=== PATIENT | female | born 1975 | race Caucasian/White ===

== ENCOUNTER → 2016-12-07 | Outpatient (CLI) | payer OTHER ==
--- NOTE | 2016-12-08 09:49 | MM ---
Reason for exam: screening (asymptomatic). Last mammogram was performed 1 year and 6 months ago. History: Family history of breast cancer in mother at age 66. Physical Findings: A clinical breast exam by your physician is recommended on an annual basis and results should be correlated with mammographic findings. MG 3D Screening Mammo W/Cad Bilateral CC and MLO view(s) were taken. Prior study comparison: June 17, 2015, mammogram. The breast tissue is heterogeneously dense. This may lower the sensitivity of mammography. There is no discrete abnormality. ASSESSMENT: Negative, BI-RAD 1 RECOMMENDATION: Routine screening mammogram of both breasts in 1 year.
== END | disposition home or self-care (01) ==
LOC: RADMAMWWP 13:30
PROVIDERS: ATTEND Obstetrics & Gynecology Obstetrics
DX: Z12.31 Encounter for screening mammogram for malignant neoplasm of breast (principal); Z80.3 Family history of malignant neoplasm of breast
CPT/HCPCS: 77063; G0202

== ENCOUNTER → 2017-07-19 | Outpatient (CLI) | payer MEDICAID ==
[2017-07-19 16:52] LABS: Basophils % (A) 1 %; Eosinophils # (A) 0.2 k/uL (0-0.7); Eosinophils % (A) 2 %; HCT 43.3 % (34.0-46.0); HGB 14.3 gm/dL (11.4-16.0); Lymphocytes # (A) 2.2 k/uL (1.0-4.8); Lymphocytes % (A) 29 %; MCH 30.6 pg (25.0-35.0); MCV 92.9 fL (80.0-100.0); Mean Platelet Volume 7.3; Monocytes # (A) 0.4 k/uL (0-1.0); Monocytes % (A) 6 %; Neutrophils # (A) 4.6 k/uL (1.3-7.7); Neutrophils % (A) 60 %; Platelet Count 308 k/uL (150-450); RBC 4.66 m/uL (3.80-5.40); RDW 12.4 % (11.5-15.5); WBC 7.5 k/uL (3.8-10.6)
[2017-07-19 18:00] LABS: Total Eosinophil Count 151 #EOS/uL (150-300)
[2017-07-20 01:41] LABS: Alternaria alternata IgE <0.10 kU/L; Birch IgE 1.21 kU/L; Cat Epith & Dander IgE 2.36 kU/L; Cockroach IgE <0.10 kU/L; Dermato. farinae IgE <0.10 kU/L; Elm IgE <0.10 kU/L; Maple (Box Elder) IgE <0.10 kU/L; Oak IgE <0.10 kU/L; Ragweed,Common IgE 3.51 kU/L; Red Top (Bentgrass) IgE 0.91 kU/L
== END | disposition home or self-care (01) ==
LOC: LABWHC1 16:04
PROVIDERS: ATTEND Internal Medicine
DX: Z88.9 Allergy status to unspecified drugs, medicaments and biological substances (principal)
CPT/HCPCS: 36415; 82785; 85008; 85025; 86003

== ENCOUNTER → 2017-07-26 | Outpatient (CLI) | payer MEDICAID ==
--- NOTE | 2017-07-26 09:02 | CT ---
EXAMINATION TYPE: CT chest wo con DATE OF EXAM: 07/26/2017 COMPARISON: NONE HISTORY: Cough, COPD CT DLP: 251.8 mGycm High-resolution noncontrast CT of the chest was performed with the patient in the prone and supine po sitions. Lung and mediastinal window settings are submitted. The lungs appear to be well-aerated. Mild upper lobe parenchymal scarring. I do not see evidence for fibrotic change. There is no evidence for bronchiectasis, groundglass infiltrate, nodule or mass. No pleural effusion is identified. I do not see evidence for hilar or mediastinal mass or adenopath y. IMPRESSION: No significant abnormality is seen. Correlate clinically.
== END | disposition home or self-care (01) ==
LOC: RADCTMAIN 08:32
PROVIDERS: ATTEND Internal Medicine
DX: R05 Cough (principal)
CPT/HCPCS: 71250

== ENCOUNTER → 2019-12-25 | Outpatient (CLI) | payer OTHER ==
[2019-12-25 13:31] VITALS: BP 101/67; PULSE 113; RESP 12; TEMP 98
--- NOTE | 2019-12-25 14:24 | P.HPOB ---
History of Present Illness H&P Date: 12/25/19 Chief Complaint: The patient is here for her routine gynecologic exam and ma mmogram. This is a 44-year-old with an LMP of 11/15/2019. The patient is here to establish with this office. She is without gynecologic complaints. It has been about 3 years since her last pelvic examination. Status post tubal ligation and endometrial ablation. Menses are regular every month. Review of Systems The patient's weight has been stable over the last year. She denies respiratory, cardiac, or G.I. problems. 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 History of Any Multi-Drug Resistant Organisms: None Reported Past Surgical History: Tubal Ligation, Uterine Ablation Additional Past Surgical History / Comment(s): Endometrial ablation 2014. Past Psychological History: No Psychological Hx Reported Smoking Status: Never smoker Past Alcohol Use History: Occasional (3 or 4 per week) Past Drug Use History: None Reported Additional History: She has been since 2003. This is her second marriage. 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 - Past Family History Mother Family Medical History: Cancer Additional Family Medical History / Comment(s): Breast cancer age 65. Father Family Medical History: Hypertension Sister(s) Family Medical History: Cancer Additional Family Medical History / Comment(s): Skin cancer. Medications and Allergies Home Medications Medication Instructions Recorded Confirmed Type Fluticasone/Umeclidin/Vilanter 1 inhalation INHALATION DAILY 12/25/19 12/25/19 History [Barrera Purvis 100-62.5-25] Montelukast [Singulair] 10 mg PO HS 12/25/19 12/25/19 History Allergies Allergy/AdvReac Type Severity Reaction Status Date / Time No Known Allergies Allergy Unverified 12/25/19 13:42 Exam Vital Signs Temp Pulse Resp BP Pulse Ox 12/25/19 13:25 98.0 F 113 H 12 101/67 94 L Intake and Output 12/24/19 12/25/19 12/25/19 22:59 06:59 14:59 Other: Weight 55.338 kg Height 5 feet 6 inches, weight 122 pounds, BMI 19.7. This is a well-developed well-nourished white female who is alert and oriented times 3 in no acute distress. HEENT: Within normal limits. NECK: Supple without mass or thyromegaly. CHEST AND LUNGS: Clear to auscultation. HEART: Regular rate and rhythm. BREASTS: Are without mass or discharge. AXILLARY EXAM: Negative for adenopathy. BACK: Negative for CVA tenderness. ABDOMEN: Soft, nontender, without palpable masses. PELVIC EXAM: Normal external genitalia. Cervix and vagina appear normal. There is no unusual discharge. There is no evidence of prolapse. The uterus is midposition, nongravid size and nontender. There are no palpable adnexal masses or tenderness. RECTAL EXAM: negative for mass or tenderness and is negative for occult blood. EXTREMITIES: Nontender. IMPRESSION: 1. 44-year-old female who is status post tubal ligation with normal gynecologic exam. PLAN: 1. Pap smear was performed. 2. Self breast awareness was discussed with the patient. 3. Screening mammogram is due. The patient states she has an appointment in approximately 2 months. The order slip was given to the patient for this. 4. Osteoporosis prevention was discussed. I have stressed the importance of ad equate calcium, vitamin D and regular exercise. Recommended amounts of calcium and vitamin D were also discussed. 5. She was advised to return in one year for her annual well woman exam.
--- NOTE | 2020-01-02 15:45 | P.PN ---
Progress Note - Text Progress Note Date: 01/02/20 OUTPATIENT FOLLOW-UP NOTE TEST(S)/RESULTS: Pap smear 12/25/2019 was negative. METHOD OF NOTIFICATION: She was notified by phone. PATIENT COMMENTS: She is happy to hear this result. DIAGNOSIS: Negative Pap smear DISCUSSION: Mammogram is scheduled for 03/06/2020. PLAN: She was advised to return in one year for her annual well woman exam.
== END | disposition home or self-care (01) ==
LOC: WWCWWP 13:13
PROVIDERS: ATTEND Obstetrics & Gynecology
DX: Z53.9 Procedure and treatment not carried out, unspecified reason (principal)

== ENCOUNTER → 2021-04-21 | Outpatient (CLI) | payer OTHER ==
[2021-04-21 11:17] VITALS: BP 111/77; PULSE 96; RESP 18; TEMP 98.2
--- NOTE | 2021-04-21 11:51 | P.HPOB ---
History of Present Illness H&P Date: 04/21/21 Chief Complaint: The patient is here for her routine gynecologic exam. This is a 45-year-old with an LMP of 03/27/2021. She is status post tubal ligation and endometrial ablation. Menstrual periods have been regular every month and light. Review of Systems She has gained about 6 pounds over the past year. Respiratory: Occasional emphysema symptoms and she is treated for this. She denies cardiac or GI problems. 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 History of Any Multi-Drug Resistant Organisms: None Reported Past Surgical History: Tubal Ligation, Uterine Ablation Additional Past Surgical History / Comment(s): Endometrial ablation 2014. Past Psychological History: No Psychological Hx Reported Smoking Status: Never smoker Past Alcohol Use History: Occasional (4 per week) Past Drug Use History: None Reported Additional History: She has been since 2003. This is her second marriage. 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 - Past Family History Mother Family Medical History: Cancer Additional Family Medical History / Comment(s): Breast cancer age 65. Father Family Medical History: Hypertension Sister(s) Family Medical History: Cancer Additional Family Medical History / Comment(s): Skin cancer. Medications and Allergies Home Medications Medication Instructions Recorded Confirmed Type Fluticasone/Umeclidin/Vilanter 1 inhalation INHALATION DAILY 12/25/19 04/21/21 History [Trelerolan Ellipta 100-62.5-25] Montelukast [Singulair] 10 mg PO HS 12/25/19 04/21/21 History Multivitamin [Multivitamins Adult 1 each PO DAILY 04/21/21 04/21/21 History Gummies] Allergies Allergy/AdvReac Type Severity Reaction Status Date / Time No Known Allergies Allergy Unverified 04/21/21 11:10 Exam Vital Signs Temp Pulse Resp BP Pulse Ox 04/21/21 11:12 98.2 F 96 18 111/77 94 L Intake and Output 04/20/21 04/21/21 04/21/21 22:59 06:59 14:59 Other: Weight 58.06 kg Height 5 feet 5 inches, weight 128 pounds, BMI 21.3. This is a well-developed well-nourished white female who is alert and oriented times 3 in no acute distress. HEENT: Within normal limits. NECK: Supple without mass or thyromegaly. CHEST AND LUNGS: Clear to auscultation. HEART: Regular rate and rhythm. BREASTS: Are without mass or discharge. AXILLARY EXAM: Negative for adenopathy. BACK: Negative for CVA tenderness. ABDOMEN: Soft, nontender, without palpable masses. PELVIC EXAM: Normal external genitalia. Cervix and vagina appear normal. There is no unusual discharge. There is no evidence of prolapse. The uterus is midposition, nongravid size and nontender. There are no palpable adnexal masses or tenderness. RECTAL EXAM: negative for mass or tenderness and is negative for occult blood. EXTREMITIES: Nontender. IMPRESSION: 1. 45-year-old female who is status post tubal ligation, with normal gynecologic exam. PLAN: 1. Pap smear was deferred since she had a normal one on 12/25/2019. 2. Self breast awareness was discussed with the patient. We have also discussed symptoms associated with inflammatory breast cancer. 3. Screening mammogram is due and the order slip was given to the patient for this. She did not have one done last year. It has been about 2 years since her last one and she states she will do it at [facility] as she has done in the past. She states she may plan on having them done here at the time of her annual exams in the future. 4. Osteoporosis prevention was discussed. I have stressed the importance of adequate calcium, vitamin D and regular exercise. Recommended amounts of calcium and vitamin D were also discussed. 5. She has not received a Covid vaccination. She states she did have Covid in the past. She understands this [facility] recommends vaccination. She will consider this. 6. She was advised to return in one year for her annual well woman exam.
== END ==
LOC: WWCWWP 11:01
PROVIDERS: ATTEND Obstetrics & Gynecology
DX: Z01.419 Encounter for gynecological examination (general) (routine) without abnormal findings (principal); J43.9 Emphysema, unspecified; Z98.51 Tubal ligation status

== ENCOUNTER → 2022-06-08 | Outpatient (CLI) | payer OTHER ==
[2022-06-08 10:39] VITALS: BP 112/76; PULSE 97; RESP 17; TEMP 97.8
--- NOTE | 2022-06-08 11:13 | P.HPOB ---
History of Present Illness H&P Date: 06/08/22 Chief Complaint: The patient is here for her routine gynecologic exam and ma mmogram. This is a 46-year-old with an LMP of 05/01/2022. The patient is status post tubal ligation. She states that over the last year her menstrual periods become slightly irregular about every 1-2 months. She has experienced some hot flashes which are mild in the typically are noticed more prior to her menstrual period. Review of Systems The patient's weight has been stable over the last year. She denies respiratory, cardiac, or G.I. problems. 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 History of Any Multi-Drug Resistant Organisms: None Reported Past Surgical History: Tubal Ligation, Uterine Ablation Additional Past Surgical History / Comment(s): Endometrial ablation 2014. Past Psychological History: No Psychological Hx Reported Smoking Status: Never smoker Past Alcohol Use History: Occasional (2 or 3 per week) Past Drug Use History: None Reported Additional History: She has been since 2003. This is her second marriage. 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 - Past Family History Mother Family Medical History: Cancer Additional Family Medical History / Comment(s): Breast cancer age 65. Father Family Medical History: Hypertension Sister(s) Family Medical History: Cancer Additional Family Medical History / Comment(s): Skin cancer. Medications and Allergies Home Medications Medication Instructions Recorded Confirmed Type Multivitamin [Multivitamins Adult 1 each PO DAILY 04/21/21 06/08/22 History Gummies] Calcium Carbonate [Calcium] 600 mg PO DAILY 06/08/22 06/08/22 History Fluticasone Propion/Salmeterol 1 inhalation INHALATION BID 06/08/22 06/08/22 History [Advair 500-50 Diskus] [place]-3 Fatty Acids [[place]ney-3] 1,000 mg PO DAILY 06/08/22 06/08/22 History Umeclidinium [place] [Incruse 1 inhalation INHALATION DAILY 06/08/22 06/08/22 History Ellipta] Allergies Allergy/AdvReac Type Severity Reaction Status Date / Time No Known Allergies Allergy Unverified 06/08/22 10:29 Exam Vital Signs Temp Pulse Resp BP Pulse Ox 06/08/22 10:36 97.8 F 97 17 112/76 96 Intake and Output 06/07/22 06/08/22 06/08/22 22:59 06:59 14:59 Other: Weight 57.606 kg Height 5 feet 6 inches, weight 127 pounds, BMI 20.5. This is a well-developed well-nourished white female who is alert and oriented times 3 in no acute distress. HEENT: Within normal limits. NECK: Supple without mass or thyromegaly. CHEST AND LUNGS: Clear to auscultation. HEART: Regular rate and rhythm. BREASTS: Are without mass or discharge. AXILLARY EXAM: Negative for adenopathy. BACK: Negative for CVA tenderness. ABDOMEN: Soft, nontender, without palpable masses. PELVIC EXAM: Normal external genitalia. Cervix and vagina appear normal. There is no unusual discharge. There is no evidence of prolapse. The uterus is midposition, nongravid size and nontender. There are no palpable adnexal masses or tenderness. RECTAL EXAM: negative for mass or tenderness and is negative for occult blood. EXTREMITIES: Nontender. IMPRESSION: 1. 46-year-old perimenopausal female who is status post tubal ligation with normal gynecologic exam. 2. Mild menstrual irregularity and mild vasomotor symptoms consistent with the perimenopause. PLAN: 1. Pap smear cotest was performed. 2. Self breast awareness was discussed with the patient. We have also discussed symptoms associated with inflammatory breast cancer. 3. Screening mammogram will be done today. 4. The patient will keep a menstrual calendar and call if menstrual problems. 5. Colorectal cancer screening was discussed. She is planning to do Cologuard testing through her PCP. 6. She was advised to return in one year for her annual well woman exam.
--- NOTE | 2022-06-09 08:04 | MM ---
Reason for Exam: Screening (asymptomatic). Last mammogram was performed 1 year(s) and 1 month(s) ago. Patient History: Menarche at age 13. First Full-Term at age 21. Premenopausal. Mother had breast cancer, age 66. Last menstrual period: 05/01/2022 Risk Values: Kaley 5 year model risk: 1.5%. NCI Lifetime model risk: 15.7%. Prior Study Comparison: 06/17/2015 Screening Mammogram, Unknown. 12/07/2016 Bilateral Screening Mammogram, [facility]. 05/04/2021 Bilateral Screening Mammogram, [facility]. Tissue Density: The breast tissue is heterogeneously dense. This may lower the sensitivity of mammography. Findings: Analyzed By CAD. There is no suspicious group of microcalcifications or new suspicious mass in either breast. Overall Assessment: Benign, BI-RAD 2 Management: Screening Mammogram of both breasts in 1 year. A clinical breast exam by your physician is recommended on an annual basis and results should be correlated with mammographic findings. Electronically signed and approved by: Crow Stephens M.D. Radiologis
== END ==
LOC: WWCWWP 10:23
PROVIDERS: ATTEND Obstetrics & Gynecology
DX: Z01.419 Encounter for gynecological examination (general) (routine) without abnormal findings (principal); J45.909 Unspecified asthma, uncomplicated; N92.6 Irregular menstruation, unspecified
CPT/HCPCS: 77063; 77067

== ENCOUNTER → 2023-07-19 | Outpatient (CLI) | payer OTHER ==
[2023-07-19 14:46] VITALS: BP 103/67; PULSE 88; RESP 16; TEMP 97.8
--- NOTE | 2023-07-19 15:15 | P.HPOB ---
History of Present Illness H&P Date: 07/19/23 Chief Complaint: The patient is here for her routine gynecologic exam and ma mmogram. This is a 48-year-old G3, P3 with an LMP of 06/23/2023. Patient is status post tubal ligation. She is status post endometrial ablation in 2014. Menstrual periods have been very light and short since then. There was a period of time where she went 4 months without a menstrual period, but mostly they have been about monthly lasting 2 days. She has been experiencing some hot flashes that are intermittent and fairly mild. She denies intermenstrual bleeding or postcoital bleeding. Review of Systems The patient has lost 3 pounds over the last year. She denies respiratory, cardiac, or G.I. problems. 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 History of Any Multi-Drug Resistant Organisms: None Reported Past Surgical History: Tubal Ligation, Uterine Ablation Additional Past Surgical History / Comment(s): Endometrial ablation 2014. Past Psychological History: No Psychological Hx Reported Smoking Status: Never smoker Past Alcohol Use History: Occasional Past Drug Use History: None Reported - Past Family History Mother Family Medical History: Cancer Additional Family Medical History / Comment(s): Breast cancer age 65. Father Family Medical History: Hypertension Sister(s) Family Medical History: Cancer Additional Family Medical History / Comment(s): Skin cancer. Medications and Allergies Home Medications Medication Instructions Recorded Confirmed Type Multivitamin [Multivitamins Adult 1 each PO DAILY 04/21/21 07/19/23 History Gummies] Calcium Carbonate [Calcium] 600 mg PO DAILY 06/08/22 07/19/23 History Fluticasone Propion/Salmeterol 1 inhalation INHALATION BID 06/08/22 07/19/23 History [Advair 500-50 Diskus] [place]-3 Fatty Acids [[place]-3] 1,000 mg PO DAILY 06/08/22 07/19/23 History Umeclidinium [place] [Incruse 1 inhalation INHALATION DAILY 06/08/22 07/19/23 History Ellipta] Allergies Allergy/AdvReac Type Severity Reaction Status Date / Time No Known Allergies Allergy Unverified 07/19/23 14:31 Exam Vital Signs Temp Pulse Resp BP Pulse Ox 07/19/23 14:31 97.8 F 88 16 103/67 98 Intake and Output 07/19/23 07/19/23 07/19/23 06:59 14:59 22:59 Other: Weight 56.245 kg Height 5 feet 6 inches, weight 124 pounds, BMI 20.0. This is a well-developed well-nourished white female who is alert and oriented times 3 in no acute distress. HEENT: Within normal limits. NECK: Supple without mass or thyromegaly. CHEST AND LUNGS: Clear to auscultation. HEART: Regular rate and rhythm. BREASTS: Are without mass or discharge. AXILLARY EXAM: Negative for adenopathy. BACK: Negative for CVA tenderness. ABDOMEN: Soft, nontender, without palpable masses. PELVIC EXAM: Normal external genitalia. Cervix reveals a small endocervical po lyp measuring approximately 4 x 3 x 2 mm and is a dark pink color. This appears benign. There is no unusual discharge. There is no evidence of prolapse. The uterus is midposition, nongravid size and nontender. There are no palpable adnexal masses or tenderness. RECTAL EXAM: Rectovaginal exam is negative for mass or tenderness and is negative for occult blood. EXTREMITIES: Nontender. IMPRESSION: 1. 48-year-old perimenopausal female with recent oligomenorrhea and intermittent vasomotor symptoms. 2. Small benign-appearing endocervical polyp which is asymptomatic. 3. Previous endometrial ablation with very light menstrual periods since then. PLAN: 1. Pap smear was deferred since she had a negative Pap smear cotest on 06/08/2022. 2. Self breast awareness was discussed with the patient. We have also discussed symptoms associated with inflammatory breast cancer. 3. Screening mammogram was done today 4. We have discussed the option of conservative management of the endocervical polyp as well as possible removal. We have decided to proceed with conservative management. She was instructed to call if she has any abnormal bleeding such as intermenstrual bleeding or postcoital bleeding. 5. She is scheduled for a colonoscopy since she had an abnormal Cologuard testing. 6. Osteoporosis prevention was discussed. I have stressed the importance of adequate calcium, vitamin D and regular exercise. Recommended amounts of calcium and vitamin D were also discussed. 7. She was advised to return in one year for her annual well woman exam and as needed.
--- NOTE | 2023-07-20 09:18 | MM ---
Reason for Exam: Screening (asymptomatic). Last mammogram was performed 1 year(s) and 1 month(s) ago. Patient History: Menarche at age 13. First Full-Term at age 21. Premenopausal. Mother had breast cancer, age 66. Risk Values: Kaley 5 year model risk: 1.6%. NCI Lifetime model risk: 15.3%. Prior Study Comparison: 12/07/2016 Bilateral Screening Mammogram, [facility]. 05/04/2021 Bilateral Screening Mammogram, [facility]. 06/08/2022 Bilateral MG 3D screening mammo w/cad, [facility]. Tissue Density: The breasts are heterogeneously dense, which may obscure small masses. Findings: Analyzed By CAD. Right breast: There is no suspicious group of microcalcifications or new suspicious mass. Left breast: There is no suspicious group of microcalcifications or new suspicious mass. Overall Assessment: Negative, BI-RAD 1 Management: Screening Mammogram of both breasts in [address] [facility] will attempt to contact patient to return for supplemental views and ultrasound if indicated. Patient should continue monthly self-breast exams. A clinical breast exam by your physician is recommended on an annual basis. This exam should not preclude additional follow-up of suspicious palpable abnormalities. Note on Kaley scores and lifetime risk: 1. A Kaley score greater than 3% is considered moderate risk. If this is the case, consider specialist referral to assess eligibility for a risk reducing agent. 2. If overall lifetime risk for the development of breast cancer is 20% or higher, the patient may qualify for future screening with alternating mammogram and breast MRI. Electronically signed and approved by: Fransisco Damon DO
== END ==
LOC: WWCWWP 13:36
PROVIDERS: ATTEND Obstetrics & Gynecology
DX: Z12.31 Encounter for screening mammogram for malignant neoplasm of breast (principal); N84.1 Polyp of cervix uteri
CPT/HCPCS: 77063; 77067

== ENCOUNTER → 2024-08-28 | Outpatient (CLI) | payer OTHER ==
[2024-08-28 08:40] VITALS: BP 104/70; PULSE 76; RESP 16; TEMP 98.7
--- NOTE | 2024-08-28 08:42 | P.HPOB ---
History of Present Illness H&P Date: 08/28/24 Chief Complaint: The patient is here for her routine gynecologic exam and ma mmogram. This is a 57-year-old G3, P3 with an LMP of June 2023. She is status post tubal ligation. The patient states she has been having some intermittent hot flashes and some moodiness, but the symptoms are tolerable. She denies any vaginal bleeding for more than 1 year. Review of Systems The patient has gained 6 pounds over the last year. She denies respiratory, cardiac, or G.I. problems. 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 History of Any Multi-Drug Resistant Organisms: None Reported Past Surgical History: Tubal Ligation, Uterine Ablation Additional Past Surgical History / Comment(s): Endometrial ablation 2014. Colonoscopy 2024(precancerous polyps to be repeated within 1 year.) Past Psychological History: No Psychological Hx Reported Smoking Status: Never smoker Past Alcohol Use History: Occasional (2-3 drinks per week.) Past Drug Use History: None Reported Additional History: She has been since 2003. She is retired and spends part of the winter in [place]. - Past Family History Mother Family Medical History: Cancer Additional Family Medical History / Comment(s): Breast cancer age 65. Father Family Medical History: Hypertension Sister(s) Family Medical History: Cancer Additional Family Medical History / Comment(s): Skin cancer. Medications and Allergies Home Medications Medication Instructions Recorded Confirmed Type Multivitamin [Multivitamins Adult 1 each PO DAILY 04/21/21 07/19/23 History Gummies] Calcium Carbonate [Calcium] 600 mg PO DAILY 06/08/22 07/19/23 History Fluticasone Propion/Salmeterol 1 inhalation INHALATION BID 06/08/22 07/19/23 History [Advair 500-50 Diskus] [place]-3 Fatty Acids [[place]-3] 1,000 mg PO DAILY 06/08/22 07/19/23 History Tezepelumab-Ekko [Tezspire] 210 mg INJ QMONTHLY 08/28/24 08/28/24 History Umeclidinium [place] [Incruse 62.5 each INHALATION DAILY 08/28/24 08/28/24 History Ellipta] Allergies Allergy/AdvReac Type Severity Reaction Status Date / Time No Known Allergies Allergy Unverified 08/28/24 08:14 Exam Intake and Output 08/27/24 08/28/24 08/28/24 22:59 06:59 14:59 Other: Weight 58.967 kg Height 5 feet 7 inches, weight 130 pounds, BMI 20.4. Blood pressure 104/70, temperature 98.7, pulse 76, pulse oximeter 94%. This is a well-developed well-nourished white female who is alert and oriented times 3 in no acute distress. HEENT: Within normal limits. NECK: Supple without mass or thyromegaly. CHEST AND LUNGS: Clear to auscultation. HEART: Regular rate and rhythm. BREASTS: Are without mass or discharge. AXILLARY EXAM: Negative for adenopathy. BACK: Negative for CVA tenderness. ABDOMEN: Soft, nontender, without palpable masses. PELVIC EXAM: Normal external genitalia. There is a endocervical polyp which has a benign appearance, and measures approximately 11 x 6 x 3 mm. This seems larger than her previous exam. Cervix is otherwise unremarkable without significant atrophy. The vagina appears normal without significant atrophy. There is no unusual discharge. There is no evidence of prolapse. The uterus is midposition, nongravid size and nontender. There are no palpable adnexal masses or tenderness. RECTAL EXAM: Rectovaginal exam is negative for mass or tenderness and is negative for occult blood. EXTREMITIES: Nontender. IMPRESSION: 1. 57-year-old menopausal female with benign-appearing endocervical polyp which is larger than her previous exam 1 year ago. PLAN: 1. Pap smear was deferred since she had a negative Pap smear cotest on 06/08/2022. 2. Self breast awareness was discussed with the patient. We have also discussed symptoms associated with inflammatory breast cancer. 3. Screening mammogram will be done today. 4. The patient will be scheduled for an endocervical polyp removal. 5. Osteoporosis prevention was discussed. I have stressed the importance of adequate calcium, vitamin D and regular exercise. Recommended amounts of c alcium and vitamin D were also discussed. 6. She will be repeating a colonoscopy later this year as was recommended after her previous colonoscopy. 7. She was advised to return in one year for her annual well woman exam and as above.
--- NOTE | 2024-08-28 10:48 | MM ---
Reason for Exam: Screening (asymptomatic). Last mammogram was performed 1 year(s) and 2 month(s) ago. Patient History: Menarche at age 13. First Full-Term at age 21. Premenopausal. Mother had breast cancer, age 66. Risk Values: Kaley 5 year model risk: 1.7%. NCI Lifetime model risk: 15.1%. Prior Study Comparison: 05/04/2021 Bilateral Screening Mammogram, [facility]. 06/08/2022 Bilateral MG 3D screening mammo w/cad, [facility]. 07/19/2023 Bilateral MG 3D screening mammo w/cad, [facility]. Tissue Density: The breasts are heterogeneously dense, which may obscure small masses. Findings: Analyzed By CAD. There is no suspicious group of microcalcifications or new suspicious mass in either breast. Overall Assessment: Negative, BI-RAD 1 Management: Screening Mammogram of both breasts in 1 year. . Patient should continue monthly self-breast exams. A clinical breast exam by your physician is recommended on an annual basis. This exam should not preclude additional follow-up of suspicious palpable abnormalities. Note on Kaley scores and lifetime risk: 1. A Kaley score greater than 3% is considered moderate risk. If this is the case, consider specialist referral to assess eligibility for a risk reducing agent. 2. If overall lifetime risk for the development of breast cancer is 20% or higher, the patient may qualify for future screening with alternating mammogram and breast MRI. [facility], , 08/28/2024 10:45 AM. Electronically signed and approved by: Dre Ayoub M.D.
== END ==
LOC: WWCWWP 07:59
PROVIDERS: ATTEND Obstetrics & Gynecology
DX: Z01.419 Encounter for gynecological examination (general) (routine) without abnormal findings (principal); Z12.31 Encounter for screening mammogram for malignant neoplasm of breast; Z78.0 Asymptomatic menopausal state
CPT/HCPCS: 77063; 77067

== ENCOUNTER → 2024-09-05 | Day surgery (SDC) | payer OTHER ==
[2024-09-05 12:11] VITALS: BP 100/68; PULSE 82; RESP 16; TEMP 97
--- NOTE | 2024-09-05 13:11 | P.PCN ---
Date of Procedure: 09/05/24 Preoperative Diagnosis: Endocervical polyp, increasing in size. Postoperative Diagnosis: Same. Procedure(s) Performed: Removal of endocervical polyp. Anesthesia: none Surgeon: Sukhwinder Castellanos Estimated Blood Loss (ml): 3 Pathology: other (Endocervical polyp) Condition: stable Disposition: same day Indications for Procedure: This was a 49yo menopausal female with an endocervical polyp that appeared to double in size over the past year. Operative Findings: The endocervical polyp measured approximately [id number] and attachment was at the 1 o'clock position of the endocervix. Description of Procedure: We discussed the procedure and indications for the procedure. Possible risks and complications were reviewed including bleeding and infection. All questions were answered. Pre procedure vitals: BP 106/68, Temp. 97.9, pulse 82, Pulse oximiter 97%. The patient was placed in the lithotomy position. A speculum was inserted into the vagina. Betadine was used to prep the cervix and vagina. A ringed forcep was used to grasp the majority of the polyp. The polyp was twisted on its stalk to reduce the stalk diameter. A cervical biopsy instrument was used to cut the stalk. The main part of the polyp was removed in 2 pieces. The base at the place of cervical attachment was then excised using the biopsy instrument. Monsels solution was applied to the site of removal to make it hemostatic. The 3 pieces were sent together in a single specimen container for pathological examination. The patient tolerated the procedure well. The EBL was 3 ml. There were no complications. Post procedure vitals: BP 136/95, pulse 85, Pulse oximeter 92%. The patient was instructed to abstain from all sexual activities for 7 days after bleeding has stopped. She was instructed to call if heavy bleeding, unusual pain, fever, or problems.
== END ==
LOC: WWCWWP 11:42
PROVIDERS: ATTEND Obstetrics & Gynecology
DX: N84.1 Polyp of cervix uteri (principal); Z78.0 Asymptomatic menopausal state
CPT/HCPCS: 88304; 88305